=== PATIENT | male | born 1985 | race Caucasian/White ===

== ENCOUNTER 2020-09-17 13:29 | Emergency (ER) | payer OTHER ==
--- NOTE | 2020-09-17 14:23 | ED Physician Documentation ---
PD HPI MALE - Stated complaint Stated Complaint: MALE - Chief complaint Chief Complaint: Abd Pain - History obtained from History obtained from: Patient - Additional information Additional information: Patient comes emergency department chief complaint of left testicular pain and swelling on and off for the last couple months worse over the last 24 hours. Patient states he has not had any direct injury to the area, other than his 7-month-old daughter sometimes jumping and kicking in his lap. He denies any dysuria or drainage from his penis. No external lesions. No hernia like symptoms. Patient states that he has not had anything like this before. He does do some weight training and takes creatine for this. He is and sexually monogamous. No other complaints at this time. Review of Systems Ten Systems: 10 systems reviewed and negative Constitutional: reports: Reviewed and negative Eyes: reports: Reviewed and negative Ears: reports: Reviewed and negative Nose: reports: Reviewed and negative Throat: reports: Reviewed and negative Cardiac: reports: Reviewed and negative Respiratory: reports: Reviewed and negative GI: reports: Reviewed and negative : reports: Testicular pain Skin: reports: Reviewed and negative Musculoskeletal: reports: Reviewed and negative Neurologic: reports: Reviewed and negative Psychiatric: reports: Reviewed and negative Endocrine: reports: Reviewed and negative Immunocompromised: reports: Reviewed and negative PD PAST MEDICAL HISTORY - Past Medical History Cardiovascular: None Respiratory: Asthma, Other Endocrine/Autoimmune: None GI: None : None HEENT: None Psych: Depression, Anxiety, Panic attacks, Post traumatic stress disorder Musculoskeletal: None, Other Derm: None - Past Surgical History Past Surgical History: Yes General: Other Ortho: Other - Present Medications Home Medications: Ambulatory Orders Medication Instructions Recorded Confirmed Oxycodone HCl/Acetaminophen 1 - 2 each PO Q6H PRN #20 tablet 07/15/14 07/19/14 [Percocet 5-325 mg Tablet] Propranolol [Inderal] 5 mg PO DAILY 07/15/14 07/19/14 diazePAM [Valium] 5 mg PO TID PRN #15 tablet 07/15/14 07/19/14 raNITIdine [Zantac] 150 mg PO DAILY 07/15/14 07/19/14 Ciprofloxacin HCl [Cipro] 1.5 tab PO BID 07/19/14 07/19/14 Oxycodone HCl/Acetaminophen 1 - 2 each PO Q6H PRN #20 tablet 07/19/14 [Percocet 5-325 mg Tablet] diazePAM [Valium] 5 mg PO TID PRN #20 tablet 07/19/14 Lorazepam [Ativan] 1 mg PO BID PRN #15 tablet 08/17/14 raNITIdine [Zantac] 150 mg PO BID #30 tablet 08/17/14 - Allergies Allergies/Adverse Reactions: Allergies Allergy/AdvReac Type Severity Reaction Status Date / Time titanium Allergy Severe redness/bli Verified 09/17/20 13:53 sters vancomycin Allergy Severe EDEMA,ITCHI Verified 09/17/20 13:53 NG - Social History Does the pt smoke?: Yes Smoking Status: Current every day smoker Does the pt drink ETOH?: Yes Does the pt have substance abuse?: No - Immunizations Immunizations are current?: Yes Immunizations: TDAP >10years/unknown - POLST Patient has POLST: No PD ED PE NORMAL - Vitals Vital signs reviewed: Yes - General General: Alert and oriented X 3, No acute distress - HEENT HEENT: Atraumatic, PERRL, EOMI, Moist mucous membranes - Neck Neck: Supple, no meningeal sign - Respiratory Respiratory: No respiratory distress - Abdomen Abdomen: Soft, Non tender, Non distended - Male Male : Other (Normal male genitalia, circumcised; no scrotal lesions or edema. Left testicle mildly enlarged compared to right. Mild tenderness noted. No masses. No discharge from urethral meatus.) - Derm Derm: Warm and dry - Extremities Extremities: No deformity - Neuro Neuro: Alert and oriented X 3 - Psych Psych: Normal mood, Normal affect Results - Vitals Vitals: Vital Signs - 24 hr 09/17/20 09/17/20 13:45 15:00 Temperature 36.5 C Heart Rate 64 65 Respiratory 14 16 Rate Blood Pressure 149/84 H 155/78 H O2 Saturation 99 99 Oxygen O2 Source Room air - Rads (name of study) US testicles Radiology: Prelim report reviewed, See rad report (Left varicocele with small hydrocele. No torsion.) PD MEDICAL DECISION MAKING - ED course Complexity details: reviewed results, re-evaluated patient, considered differential, d/w patient ED course: Patient was worked up with testicular ultrasound, Which revealed varicocele and hydrocele but no torsion. Patient was advised regarding symptomatic management, as well as follow-up with urology if symptoms do not resolve for the next couple weeks. Discussed the usual indications for return. Departure - Departure Disposition: 01 Home, Self Care Clinical Impression: Varicocele Hydrocele Qualifiers: Hydrocele type: unspecified Qualified Code(s): N43.3 - Hydrocele, unspecified Condition: Stable Instructions: ED Hydrocele Type Not Specified, ED Varicocele Follow-Up: Aman Ramos MD [Physician No Access] - Shane Rich MD [Physician No Access] - Comments: Your ultrasound shows some enlarged veins around your left testicle, consistent with a varicocele. You also have a small amount of fluid surrounding your testicle, consistent with a hydrocele. No testicular torsion was noted. Generally, symptoms should down on their own with anti-inflammatories like ibuprofen, as well as ice and supportive underwear. However, if you experience recurrent symptoms or if your symptoms do not down after the next couple of weeks, it may be helpful to pursue urology evaluation. Discharge Date/Time: 09/17/20 15:10
[2020-09-17 15:07] VITALS: BP 155/78
--- NOTE | 2020-09-17 15:21 | Ultrasound Report ---
PROCEDURE: Testicle w/Doppler INDICATIONS: PAIN/ SWELLING LEFT TESTICLE TECHNIQUE: Real-time scanning was performed of the scrotum and testicles, with image documentation. Color and p ulse Doppler interrogation was performed of both testicles. COMPARISON: None. FINDINGS: Right: Testicle is normal in size at 4.6 x 2.5 x 3.3 cm, and homogenous in echotexture. Epididymis is normal in overall size and morphology. No hydrocele or varicoceles. Overlying scrotal skin is no rmal in thickness. Left: Testicle is normal in size at 4.5 x 2.6 x 3.3 cm, and homogeneous in echotexture. Epididymis is normal in overall size and morphology. Small left hydrocele is seen with internal debris. Small le ft varicocele is also seen. Overlying scrotal skin is normal in thickness. Doppler: Color and pulse Doppler demonstrate normal and symmetric arterial flow in both testicles. IMPRESSION: 1. Small complex left hydrocele.. Small left varicoceles. 2. Normal-appearing bilateral testes and epididymis. No evidence of testicular torsion. Reviewed by: Justin Jernigan MD on 09/17/2020 3:20 PM PDT Approved by: Justin Jernigan MD on 09/17/2020 3:20 PM PDT Station ID: [id number]
== END 2020-09-17 15:10 | disposition home or self-care (01) ==
LOC: ED 13:29
DX: I86.1 Scrotal varices (principal); N43.3 Hydrocele, unspecified; F17.200 Nicotine dependence, unspecified, uncomplicated
CPT/HCPCS: 93975; 99284

== ENCOUNTER 2020-11-28 12:50 | Outpatient (CLI) | payer OTHER | END 2020-11-28 12:51 | disposition home or self-care (01) | LOC: COV 12:50 | PROVIDERS: ATTEND Surgery | DX: Z01.812 Encounter for preprocedural laboratory examination (principal); K40.90 Unilateral inguinal hernia, without obstruction or gangrene, not specified as recurrent; N43.3 Hydrocele, unspecified; Z20.822 Contact with and (suspected) exposure to COVID-19 ==

== ENCOUNTER 2020-12-01 10:56 | Day surgery (SDC) | payer OTHER ==
[2020-12-01] MEDS ORDERED: CEFAZOLIN SODIUM IN 0.9 % NACL 2 GM/100 ML BAG IV ONE (11:06)
[2020-12-01] MEDS ORDERED: LACTATED RINGERS 1,000 ML IV ONE (11:07)
[2020-12-01] MEDS ORDERED: ATROPINE ABBOJECT 1 MG/10 ML SYRINGE IVP PRN (12:13)
[2020-12-01] MEDS ORDERED: HYDROmorphone 0.5 MG/0.5 ML SYRINGE IVP PRN (12:13)
[2020-12-01] MEDS ORDERED: METOCLOPRAMIDE 10 MG/2 ML VIAL IVP PRN (12:13)
[2020-12-01] MEDS ORDERED: MORPHINE 2 MG/ML CARPUJECT IVP PRN (12:13)
[2020-12-01] MEDS ORDERED: ePHEDrine 50 MG/ML VIAL IVP PRN (12:13)
[2020-12-01] MEDS ORDERED: NALOXONE 0.4 MG/ML VIAL IVP PRN (12:13)
[2020-12-01] MEDS ORDERED: ONDANSETRON 4 MG/2 ML VIAL IVP PRN ×2 (12:13→13:59)
[2020-12-01] MEDS ORDERED: fentaNYL 100 MCG/2 ML VIAL IVP PRN (12:13)
--- NOTE | 2020-12-01 12:16 | ANESTHESIA ---
Pre-Anesthesia VS, & Labs - Diagnosis left inginal hernia and hydrocele - Procedure left inguinal hernia repair and hydocelectomy Vital Signs: Temp Pulse Resp BP Pulse Ox 37 C 62 16 132/79 H 100 12/01/20 11:19 12/01/20 11:19 12/01/20 11:19 12/01/20 11:19 12/01/20 11:19 Height: 5 ft 8 in Weight (kg): 78.4 kg Body Mass Index: 26.2 BMI Classification: Overweight - NPO >8 hours Home Medications and Allergies Home Medications: Ambulatory Orders Cyclobenzaprine [Flexeril] 10 mg PO TID PRN 11/19/20 Docusate Sodium [Stool Softener] 250 mg PO DAILY 11/19/20 Gabapentin [Neurontin] 600 mg PO DAILY 11/19/20 Prazosin [Minipress] 1 mg PO DAILY 11/19/20 traMADol [Ultram] 50 mg PO BID PRN 11/19/20 Cyclobenzaprine [Flexeril] 10 mg PO TID PRN 11/19/20 Docusate Sodium [Stool Softener] 250 mg PO DAILY 11/19/20 Gabapentin [Neurontin] 600 mg PO DAILY 11/19/20 Prazosin [Minipress] 1 mg PO DAILY 11/19/20 traMADol [Ultram] 50 mg PO BID PRN 11/19/20 Allergies/Adverse Reactions: Allergies Allergy/AdvReac Type Severity Reaction Status Date / Time titanium Allergy Severe redness/bli Verified 09/17/20 13:53 sters vancomycin Allergy Severe EDEMA,ITCHI Verified 09/17/20 13:53 NG Anes History & Medical History - Anesthetic History Anesthesia Complications: reports: No previous complications - Medical History Cardiovascular: reports: Hypertension Pulmonary: reports: None Gastrointestinal: reports: Chronic constipation, Other Urinary: reports: None Musculoskeletal: reports: Chronic back pain Endocrine/Autoimmune: reports: None Skin: reports: None Smoking Status: Current every day smoker - Surgical History General: reports: Other Orthopedic: reports: Other Exam General: Alert Dental: WNL Mouth Opening: Greater than 4 Fingerbreadths Neck Mobility: Normal Mallampati classification: II Respiratory: Lungs clear Cardiovascular: Regular rate, Normal S1, Normal S2 Plan Anesthesia Type: General Consent for Procedure(s) Verified and Reviewed: Yes Code Status: Attempt Resuscitation ASA classification: 2-Mild systemic disease Is this case an emergency?: No
[2020-12-01] MEDS ORDERED: PROPOFOL 200 MG/20 ML VIAL IVP ONE (12:44)
[2020-12-01] MEDS ORDERED: LIDOCAINE-MPF 2% 5 ML VIAL ONE (12:48)
[2020-12-01] MEDS ORDERED: ONDANSETRON 4 MG/2 ML VIAL ONE (12:48)
[2020-12-01] MEDS ORDERED: DEXAMETHASONE 4 MG/ML VIAL ONE (12:48)
[2020-12-01] MEDS ORDERED: KETOROLAC 30 MG/ML VIAL ONE (12:48)
[2020-12-01] MEDS ORDERED: MIDAZOLAM 2 MG/2 ML VIAL ONE ×2 (12:48→14:48)
[2020-12-01] MEDS ORDERED: fentaNYL 100 MCG/2 ML VIAL ONE (12:48)
[2020-12-01] MEDS ORDERED: ceFAZolin 1 GM VIAL ONE (12:51)
[2020-12-01] MEDS ORDERED: LIDOCAINE 2%-EPI 1:100000 20 ML MDV ONE (12:51)
[2020-12-01] MEDS ORDERED: BUPIVACAINE 0.5% PF 10 ML VIAL ONE ×2 (12:51→13:24)
[2020-12-01] MEDS ORDERED: LACTATED RINGERS 1,000 ML IV SCH (13:00)
[2020-12-01] MEDS ORDERED: LIDOCAINE 1%-EPI 1:100000 30 ML MDV SUBQ ONE (13:30)
[2020-12-01] MEDS ORDERED: BUPIVACAINE 0.5% PF 30 ML VIAL SUBQ ONE (13:30)
[2020-12-01] MEDS ORDERED: ceFAZolin 1 GM VIAL IR ONE (13:30)
--- NOTE | 2020-12-01 13:58 | OPERATIVE REPORT ---
Operative Report - General Procedure Date: 12/01/20 Planned Procedure: Left inguinal hernia and hydrocele repair Pre-Op Diagnosis: Symptomatic left inguinal hernia and left hydrocele Procedure Performed: Left inguinal hernia and left hydrocele repair Post Op Diagnosis: Symptomatic left inguinal hernia and left hydrocele - Procedure Note Primary Surgeon: Vishal Anesthesia Provider: KERRI Todd Anesthesia Technique: General LMA Pathology: None Estimated Blood Loss (mL): 5 Findings: 1. Direct inguinal hernia 2. Intact tunica vaginalis Complications: None apparent - Other Other Information/Narrative: After obtaining informed consent, the patient is brought to the operating room and placed in the supine position on the operating table. Following successful induction of general endotracheal anesthesia, appropriate padding of all bony prominences, and placement of appropriate monitors, the abdomen was prepped and draped in the standard surgical fashion. A timeout was held per scope protocol. All elements of the surgical safety checklist were followed before, during, and after the procedure. We began the procedure by infiltrating a mixture of local anesthetics medial to the anterior superior iliac spine on the left. This was done to create an ileal inguinal nerve block. We then selected a site for an incision in the left lower quadrant just superior and lateral to the right pubic tubercle. This area was anesthetized with additional local anesthetic and an incision was created here.The incision was carried down through the skin and subcutaneous tissue to reveal the fascia of the external oblique aponeurosis. Retractor was placed and the aponeurosis was opened in direction of its fibers. The ilioinguinal nerve was immediately identified. We continued by identifying the spermatic cord and gently encircling it with a Raina drain. And intact tunica vaginalis was identified.This was carefully opened and spatulated to allow free drainage from the scrotal sac.The hernia sac was carefully dissected free from the cord structures and was noted to be in the inferior lateral position. It consisted primarily of a large lipoma and a direct inguinal hernia. The hernia contents were placed back into the abdominal cavity. We elected to repair the hernia with a large Prolene hernia system mesh implant. This was dipped in Ancef containing solution and then deployed into the defect. The posterior leaflet was straightened and flattened in the preperitoneal space. The anterior leaflet was then nicked laterally to provide a place for the spermatic cord and then closed with a Vicryl suture. The more inferior aspect was then sewn to Zenon's ligament medially. Laterally it was tucked under the external beak aponeurosis. The wound was checked for hemostasis and irrigated with warm saline solution. It was aspirated free of all fluid and particulate matter. The extra oblique aponeurosis was then closed with a running locking Vicryl suture Magy's fascia was closed with Vicryl suture and Monocryl stitches were placed in the skin. All sponge, needle, and instrument counts were correct at the conclusion of the case. The patient was allowed awaken from anesthesia without difficulty and taken to the postanesthesia care unit in good condition.
[2020-12-01] MEDS ORDERED: IBUPROFEN 600 MG TABLET PO PRN (13:59)
[2020-12-01] MEDS ORDERED: ACETAMINOPHEN 325 MG TABLET PO PRN (13:59)
[2020-12-01] MEDS ORDERED: oxyCODONE 5 MG TABLET PO PRN (13:59)
[2020-12-01] MEDS ORDERED: LACTATED RINGERS 700 ML IV ONE (14:04)
[2020-12-01 15:40] VITALS: BP 128/74
--- NOTE | 2020-12-01 16:41 | ANESTHESIA POST OP EVALUATION ---
Anesthesia Post Eval - Post Anesthesia Eval Vitals: Last Vital Signs Temp 36.4 C L 12/01/20 15:30 Pulse 72 12/01/20 15:30 Resp 16 12/01/20 15:30 BP 128/74 12/01/20 15:30 Pulse Ox 95 12/01/20 15:30 CV Function Including HR & BP: Stable Pain Control: Satisfactory Nausea & Vomiting: Negative Mental Status: Baseline Respiratory Status: Airway Patent Hydration Status: Satisfactory Anesthesia Complications: None
== END 2020-12-01 10:57 | disposition home or self-care (01) ==
LOC: SDS 10:56
PROVIDERS: ATTEND Surgery
DX: K40.90 Unilateral inguinal hernia, without obstruction or gangrene, not specified as recurrent (principal); N43.3 Hydrocele, unspecified; D17.6 Benign lipomatous neoplasm of spermatic cord; I10 Essential (primary) hypertension; J45.909 Unspecified asthma, uncomplicated; F17.200 Nicotine dependence, unspecified, uncomplicated; K59.09 Other constipation; G89.29 Other chronic pain; M54.9 Dorsalgia, unspecified; F43.10 Post-traumatic stress disorder, unspecified; F32.9 Major depressive disorder, single episode, unspecified; Z79.899 Other long term (current) drug therapy
CPT/HCPCS: 49505; C1781; J0690; J7120

== ENCOUNTER 2021-01-17 14:53 | Emergency (ER) | payer OTHER ==
[2021-01-17 15:04] VITALS: BP 153/77
[2021-01-17 15:41] LABS: BILIRUBIN,URINE NEGATIVE (NEGATIVE); GLUCOSE, URINE (UA) NEGATIVE (NEGATIVE); KETONES,URINE (UA) NEGATIVE (NEGATIVE); LEUKOCYTE ESTERASE, URINE NEGATIVE (NEGATIVE); NITRITE,URINE NEGATIVE (NEGATIVE); OCCULT BLOOD,URINE NEGATIVE (NEGATIVE); PROTEIN,URINE NEGATIVE (NEGATIVE); UROBILINOGEN,URINE 0.2 (NORMAL) E.U./dL (NORMAL)
[2021-01-17 15:45] LABS: CLARITY,URINE CLEAR (CLEAR)
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
[2021-01-17 16:05] LABS: BACTERIA,URINE None Seen /HPF (None Seen); RBC,URINE None Seen /HPF (0-5); SQUAMOUS EPITHELIAL CELL,UR RARE Squamous (<= Few); WBC,URINE 0-3 /HPF (0-3)
== END 2021-01-17 15:55 | disposition home or self-care (01) ==
LOC: ED 14:53
DX: G89.18 Other acute postprocedural pain (principal); Z98.890 Other specified postprocedural states; I10 Essential (primary) hypertension; F17.200 Nicotine dependence, unspecified, uncomplicated
CPT/HCPCS: 81001; 99283

== ENCOUNTER 2021-05-01 13:23 | Emergency (ER) | payer OTHER ==
[2021-05-01] MEDS ORDERED: HYDROmorphone 1 MG/ML CARPUJECT IVP STA ×2 (13:44→13:56)
--- NOTE | 2021-05-01 13:47 | ED Physician Documentation ---
History of Present Illness - Stated complaint Stated Complaint: BACK PX - Chief complaint Chief Complaint: Trauma Ch/Bk - Additonal information Additional information: 36-year-old male presents emergency department for evaluation of acute low back pain. 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 He reports lifting about 100 55 gallon steel barrels up to a truck this morning. After doing this work for an extensive amount of time he began to have tenderness in his low back with pain radiating to the left leg. He is unable to find a position of comfort. He endorses new paresthesia in the lateral thigh lower lateral leg and lateral toes . Patient denies saddle anesthesia, loss of bowel or bladder function. He does have a history of previous low back pain with known L4-S1 disc herniation. He also has chronic cervical neck pain due to disc herniation for which she is on a pain contract with his primary care provider. He currently takes gabapentin and tramadol for chronic pain relief daily. Patient did drive himself here to the emergency department. He did take 800 of Motrin prior to arrival Review of Systems Constitutional: denies: Fever, Chills Eyes: reports: Reviewed and negative Ears: reports: Reviewed and negative Nose: reports: Rhinorrhea / runny nose Throat: reports: Reviewed and negative Cardiac: reports: Reviewed and negative Respiratory: reports: Reviewed and negative GI: reports: Reviewed and negative : reports: Reviewed and negative Skin: reports: Reviewed and negative Musculoskeletal: reports: Neck pain, Back pain Neurologic: reports: Numbness. denies: Generalized weakness, Focal weakness, Difficulty speaking, Near syncope, Syncope, Seizure PD PAST MEDICAL HISTORY - Past Medical History Cardiovascular: Hypertension Respiratory: None Endocrine/Autoimmune: None GI: Chronic constipation, Other : None HEENT: Chronic sinusitis Psych: Depression, Anxiety, Panic attacks, Post traumatic stress disorder Musculoskeletal: Chronic back pain Derm: None - Past Surgical History Past Surgical History: Yes General: Other Ortho: Other - Present Medications Home Medications: Ambulatory Orders Medication Instructions Recorded Confirmed Cyclobenzaprine [Flexeril] 10 mg PO TID PRN 11/19/20 12/01/20 Docusate Sodium [Stool Softener] 250 mg PO DAILY 11/19/20 12/01/20 Gabapentin [Neurontin] 600 mg PO DAILY 11/19/20 12/01/20 Prazosin [Minipress] 1 mg PO DAILY 11/19/20 12/01/20 traMADol [Ultram] 50 mg PO BID PRN 11/19/20 12/01/20 Docusate Sodium [Dulcolax Stool 200 mg PO DAILY #20 cap 12/01/20 Softener] Ondansetron Odt [Zofran Odt] 4 mg TL Q6H PRN #10 tablet 12/01/20 oxyCODONE [Roxicodone] 5 mg PO Q4-6H PRN #20 tablet 12/01/20 Omeprazole 40 mg PO BID #60 tab 12/24/20 traMADol [Ultram] 100 mg PO Q6H PRN #60 tablet 12/24/20 HYDROcod/ACETAM 5/325 [[place] 5/325] 1 - 2 tab PO Q6H PRN #15 tablet 01/17/21 Gabapentin [Neurontin] 300 mg PO QDBREAKFAST 30 Days #60 01/29/21 cap traMADol [Ultram] 100 mg PO BID #60 tablet 01/29/21 Gabapentin [Neurontin] 300 mg PO HS #120 cap 03/19/21 traMADol [Ultram] 100 mg PO BID PRN #120 tablet 03/19/21 methylPREDNISolone [Medrol] 4 mg PO DAILY #1 tab 05/01/21 - Allergies Allergies/Adverse Reactions: Allergies Allergy/AdvReac Type Severity Reaction Status Date / Time titanium Allergy Severe redness/bli Verified 05/01/21 13:32 sters vancomycin Allergy Severe EDEMA,ITCHI Verified 05/01/21 13:32 NG - Social History Does the pt smoke?: Yes Smoking Status: Current every day smoker Does the pt drink ETOH?: Yes Does the pt have substance abuse?: No - Immunizations Immunizations are current?: Yes Immunizations: TDAP >10years/unknown - POLST Patient has POLST: No PD ED PE EXPANDED - General General: Alert, No acute distress, Well developed/nourished - Cardiac Cardiac: Regular Rate - Respiratory Respiratory: Clear to ausultation yanelis. No: Distress, Labored - Back Back: Soft tissue tenderness (Left lower lumbar paraspinous tenderness to palpation. Patient has a mildly antalgic gait. He has difficulty walking on the heels with his left foot. Endorses paresthesia of the left lateral thigh calf and lateral 3 toes. motor strength 4/5 left leg). No: Vertebral tenderness - Derm Derm: Normal color, Warm and dry. No: Rash - GCS Eye Opening: Spontaneous Motor: Obeys Commands Verbal: Oriented Total: 15 Results - Vitals Vitals: Vital Signs - 24 hr 05/01/21 13:29 Temperature 36.8 C Heart Rate 70 Respiratory 20 Rate Blood Pressure 155/75 H O2 Saturation 98 Oxygen O2 Source Room air PD MEDICAL DECISION MAKING - ED course Complexity details: re-evaluated patient, considered differential, d/w patient ED course: 36-year-old male presents the emergency department for evaluation of acute on chronic left-sided low back pain. He lifted approximately 100 steel barrels into a truck this morning. He denies any known inciting event but shortly after completing this work he began to notice tightness and pain in the low back with radiation down the left leg. He does have new paresthesia on the left lateral side of his leg. He does have a chronic pain management contract with his primary care provider through the [employer].Patient is dispensed with a Medrol Dosepak for acute symptoms. He is to continue the gabapentin, tramadol and Flexeril that he already has prescribed for him. Emergent return precautions were discussed for worsening symptoms. I suspect it is likely he will need a follow-up MRI in the next few weeks if not markedly better. [employer] paperwork [id number] completed Departure - Departure Disposition: 01 Home, Self Care Clinical Impression: Left-sided low back pain with left-sided sciatica Qualifiers: Chronicity: unspecified Qualified Code(s): M54.42 - Lumbago with sciatica, left side Condition: Stable Record reviewed to determine appropriate education?: Yes Instructions: ED Low Back Pain Injury Prescriptions: methylPREDNISolone [Medrol] 4 mg PO DAILY #1 tab Comments: Bakari I am so sorry that you have reinjured your back today. I suspect that lifting that many heavy barrels over the prolonged period of time simply strained the muscles in your low back. It is however possible that you have a reherniated or worsened your previous herniation. The pain radiating down the left leg and the numbness on the lateral side of your leg is an indication that you may have sciatica or inflammation of the large nerve that travels from your low back down your leg. You can continue to take the gabapentin and tramadol that you are already taking at home for your neck pain. I am prescribing you methylprednisolone. This is a steroid that you will take over the next 6 days. This should help reduce inflammation in the low back. While taking this do not take Motrin. You may resume taking Motrin, Advil or Aleve after you complete the steroids. It is important that you follow-up with your primary care provider in 7 to 10 days to ensure that the back pain is progressing as you would expect. If at any point you have sudden numbness or tingling in your genital area, are unable to control your bowel or bladder function then please return immediately to the emergency department for a second evaluation. I am giving you 1 week off of work. You must see your primary care provider for further work extension if necessary. We have completed the initial labor and industries paperwork. You should always refer to your claim number [id number] for any billing associated with this ED visit.
[2021-05-01] MEDS ORDERED: HYDROmorphone 1 MG/ML CARPUJECT IM STA (13:56)
[2021-05-01 15:00] VITALS: BP 140/72
== END 2021-05-01 14:59 | disposition home or self-care (01) ==
LOC: ED 13:23
DX: M54.42 Lumbago with sciatica, left side (principal); X50.0XXA Overexertion from strenuous movement or load, initial encounter; Y93.89 Activity, other specified; Y99.0 Civilian activity done for income or pay; I10 Essential (primary) hypertension; F17.200 Nicotine dependence, unspecified, uncomplicated
CPT/HCPCS: 1040M; 96372; 99283; 99284; J1170

== ENCOUNTER 2021-05-06 12:47 | Outpatient (CLI) | payer OTHER ==
--- NOTE | 2021-05-06 13:47 | XRAY Report ---
PROCEDURE: Lumbar Spine 2 View INDICATIONS: L LUMBAR RADICULOPATHY TECHNIQUE: 3 views of the lumbar spine were acquired. COMPARISON: None. FINDINGS: L-SPINE: No acute displaced fracture or malalignment. The vertebral body heights are maintained. The disc space heights are maintained. The sacroiliac joints appear patent. SOFT TISSUES: No focal abnormality. IMPRESSION: 1.No acute osseous abnormality of the lumbar spine. Reviewed by: Wolf Acosta MD on 05/06/2021 1:46 PM PDT Approved by: Wolf Acosta MD on 05/06/2021 1:46 PM PDT Station ID: [id number]
== END 2021-05-06 23:59 | disposition home or self-care (01) ==
LOC: DI.N 12:47
PROVIDERS: ATTEND Family Medicine
DX: M54.16 Radiculopathy, lumbar region (principal)

== ENCOUNTER 2022-10-23 06:57 | Outpatient (CLI) | payer OTHER ==
--- NOTE | 2022-10-23 18:25 | Ultrasound Report ---
PROCEDURE: Testicle INDICATIONS: TESTICULAR PAIN TECHNIQUE: Real-time scanning was performed of the scrotum and testicles, with image documentation. Color and p ulse Doppler interrogation was performed of both testicles. COMPARISON: 09/17/2020 FINDINGS: Right: Testicle is normal in size at 4.2 x 2.5 x 3.4 cm, and homogenous in echotexture. Epididymis is normal in overall size and morphology. No hydrocele. Overlying scrotal skin is normal in thickne ss. Left: Testicle is normal in size at 4.8 x 2.5 x 3.4 cm, and homogeneous in echotexture. Epididymis is normal in overall size and morphology. There is a mild left-sided hydrocele with debris seen with in it. Overlying scrotal skin is normal in thickness. Doppler: Color and pulse Doppler demonstrate normal and symmetric arterial flow in both testicles. There is a small left-sided varicocele. IMPRESSION: Normal-appearing right testicle. Negative for testicular mass or torsion on either side. Small left scrotal hydrocele with debris, which may related to a spermatocele. Small left-sided varicocele. Reviewed by: Bernardo Purcell MD on 10/23/2022 5:23 PM [facility] Approved by: Bernardo Purcell MD on 10/23/2022 5:23 PM [facility] Station ID: [id number]
== END 2022-10-23 06:58 | disposition home or self-care (01) ==
LOC: DI 06:57
PROVIDERS: ATTEND Registered Nurse
DX: N50.811 Right testicular pain (principal); R36.1 Hematospermia; N43.3 Hydrocele, unspecified; I86.1 Scrotal varices